=== PATIENT | male | born 1955 | race Caucasian/White ===

== ENCOUNTER 2024-10-16 18:26 | Emergency (ER) | payer MEDICARE ==
[2024-10-16 18:32] VITALS: RESP 18
--- NOTE | 2024-10-16 19:39 | ED ---
Extremity Problem HPI - General Source: patient Mode of arrival: ambulatory Limitations: no limitations <Sonia Medina - Last Filed: 10/16/24 19:44> <Hyacinth Ellis - Last Filed: 10/21/24 03:11> - General Chief complaint: Extremity Problem,Nontraumatic Stated complaint: Bilateral Swollen Legs Time Seen by Provider: 10/16/24 19:39 - History of Present Illness Initial comments: Quick Note: 69-year-old male presenting with chief complaint of lower extremity swelling. This has been an ongoing issue, states that over the last 2 months it has been worse. No chest pain or difficulty breathing. (Sonia Medina) 69-year-old male presents emergency department reporting bilateral lower extr emity swelling. States has been going on for the past 2 months since he came to [place]. Patient reports that he followed with his pain management doctor and he thought it was due to his other neuropathy. Patient denies history of heart failure. He does not take diuretics. No fevers. No drainage from the site. No history of DVT or PE. No other alleviating, precipitating or modifying facto rs (Hyacinth Ellis) - Related Data Previous Rx's Medication Instructions Recorded Cephalexin [Keflex] 500 mg PO Q6HR #28 cap 10/17/24 Furosemide [Lasix] 20 mg PO DAILY #30 tab 10/17/24 Allergies Allergy/AdvReac Type Severity Reaction Status Date / Time sulfamethoxazole Allergy Itching Verified 10/16/24 18:32 [From Bactrim] trimethoprim [From Bactrim] Allergy Itching Verified 10/16/24 18:32 Review of Systems ROS Other: All systems not noted in ROS Statement are negative. <Sonia Medina - Last Filed: 10/16/24 19:44> ROS Other: All systems not noted in ROS Statement are negative. <Hyacinth Ellis - Last Filed: 10/21/24 03:11> ROS Statement: Those systems with pertinent positive or pertinent negative responses have been documented in the HPI. Past Medical History Past Medical History: Hypertension History of Any Multi-Drug Resistant Organisms: None Reported Past Surgical History: Hernia Repair Additional Past Surgical History / Comment(s): cervial Past Psychological History: No Psychological Hx Reported Smoking Status: Never smoker Past Alcohol Use History: None Reported Past Drug Use History: None Reported <Sonia Medina - Last Filed: 10/16/24 19:44> General Exam Limitations: no limitations <Sonia Medina - Last Filed: 10/16/24 19:44> General appearance: alert, in no apparent distress Head exam: Present: atraumatic, normocephalic, normal inspection Eye exam: Present: normal appearance, PERRL, EOMI. Absent: scleral icterus, conjunctival injection, periorbital swelling ENT exam: Present: normal exam, mucous membranes moist Neck exam: Present: normal inspection. Absent: tenderness, meningismus, lymphadenopathy Respiratory exam: Present: normal lung sounds bilaterally. Absent: respiratory distress, wheezes, rales, rhonchi, stridor Cardiovascular Exam: Present: regular rate, normal rhythm, normal heart sounds. Absent: systolic murmur, diastolic murmur, rubs, gallop, clicks GI/Abdominal exam: Present: soft, normal bowel sounds. Absent: distended, tenderness, guarding, rebound, rigid Extremities exam: Present: full ROM, normal capillary refill, pedal edema. Absent: tenderness, joint swelling, calf tenderness Back exam: Present: normal inspection Neurological exam: Present: alert, oriented X3, CN II-XII intact Psychiatric exam: Present: normal affect, normal mood Skin exam: Present: warm, dry, intact, normal color. Absent: rash <Hyacinth Ellis - Last Filed: 10/21/24 03:11> - General Exam Comments Initial Comments: Visual Physical Exam Vital signs reviewed General: Well-appearing, nontoxic, no acute distress. Head: Normocephalic, atraumatic Eyes: PERRLA, EOMI ENT: Airway patent Chest: Nonlabored breathing Skin: No visual rash, normal skin tone Neuro: Alert and oriented 3 Musculoskeletal: No gross abnormalities (Sonia Medina) Course Vital Signs 10/16/24 10/17/24 18:28 01:49 Temperature 98.0 F 98.6 F Pulse Rate 88 76 Respiratory 18 18 Rate Blood Pressure 144/87 146/82 O2 Sat by Pulse 97 99 Oximetry Medical Decision Making <Sonia Medina - Last Filed: 10/16/24 19:44> - Lab Data Result diagrams: 10/16/24 21:31 10/16/24 21:31 <Hyacinth Ellis - Last Filed: 10/21/24 03:11> - Medical Decision Making I performed the quick note portion of this visit, electronically signed Sonia Medina PA-C (Sonia Medina) Was pt. sent in by a medical professional or institution (MOSHE Frost, HEAVY TRUCK TECHNICIAN, urgent care, hospital, or assisted...) When possible be specific @ -No Did you speak to anyone other than the patient for history (EMS, parent, family, police, friend...)? What history was obtained from this source @ -No Did you review nursing and triage notes (agree or disagree)? Why? @ -I reviewed and agree with nursing and triage notes Were old charts reviewed (outside hosp., previous admission, EMS record, old EKG, old radiological studies, urgent care reports/EKG's, assisted records)? Report findings @ -No old charts were reviewed Differential Diagnosis (chest pain, altered mental status, abdominal pain women, abdominal pain men, vaginal bleeding, weakness, fever, dyspnea, syncope, headache, dizziness, GI bleed, back pain, seizure, CVA, palpatations, mental health, musculoskeletal)? @ -Lymphedema, DVT, cellulitis EKG interpreted by me (3pts min.). @ -Not done X-rays interpreted by me (1pt min.). @ -None done CT interpreted by me (1pt min.). @ -None done U/S interpreted by me (1pt. min.). @ -Yes which demonstrates no acute DVT What testing was considered but not performed or refused? (CT, X-rays, U/S, labs)? Why? @ -None What meds were considered but not given or refused? Why? @ -None Did you discuss the management of the patient with other professionals (professionals i.e. MOSHE Frost, HEAVY TRUCK TECHNICIAN, lab, RT, psych nurse, socially responsible investment adviser, video tape editor, te acher, air defence officer, case assembler)? Give summary @ -No Was smoking cessation discussed for >3mins.? @ -No Was critical care preformed (if so, how long)? @ -No Were there social determinants of health that impacted care today? How? (Homelessness, low income, unemployed, alcoholism, drug addiction, transportation, low edu. Level, literacy, decrease access to med. care, care home, rehab)? @ -No Was there de-escalation of care discussed even if they declined (Discuss DNR or withdrawal of care, Hospice)? DNR status @ -No What co-morbidities impacted this encounter? (DM, HTN, Smoking, COPD, CAD, C ancer, CVA, ARF, Chemo, Hep., AIDS, mental health diagnosis, sleep apnea, morbid obesity)? @ -Hypertension Was patient admitted / discharged? Hospital course, mention meds given and route, prescriptions, significant lab abnormalities, going to OR and other pertinent info. @ -Upon arrival patient seen and evaluated in bed 27. Thorough history and physical exam was performed. IV access was established laboratory studies are conducted. White count is 20,000. Ultrasound demonstrates no acute process. Patient given a dose of antibiotics. He will be discharged home on antibiotics and Lasix. Instructed to take them as they are instructed. Follow-up with his primary care. Return for any new or worsening symptoms. Patient agreeable to plan he was discharged in stable condition Undiagnosed new problem with uncertain prognosis? @ -No Drug Therapy requiring intensive monitoring for toxicity (Heparin, Nitro, Insulin, Cardizem)? @ -No Were any procedures done? @ -No Diagnosis/symptom? @ -Chronic bilateral lower extremity edema, leukocytosis Acute, or Chronic, or Acute on Chronic? @ -Chronic, Acute Uncomplicated (without systemic symptoms) or Complicated (systemic symptoms)? @ -Complicated Side effects of treatment? @ -No Exacerbation, Progression, or Severe Exacerbation? @ -No Poses a threat to life or bodily function? How? (Chest pain, USA, NM, pneumonia, PE, COPD, DKA, ARF, appy, cholecystitis, CVA, Diverticulitis, Homicidal, Suicidal, threat to staff... and all critical care pts) @ -No (Hyacinth Ellis) - Lab Data Lab Results 10/16/24 10/16/24 10/16/24 Range/Units 21:31 21:31 23:21 WBC 20.76 H (4.50-10.00) 10*3/uL RBC 5.10 (4.40-5.60) 10*6/uL Hgb 14.6 (13.0-17.0) g/dL Hct 44.3 (39.6-50.0) % MCV 86.9 (80.0-97.0) fL MCH 28.6 (27.0-32.0) pg MCHC 33.0 (32.0-37.0) g/dL Plt Count 257 (140-440) 10*3/uL MPV 9.5 (9.5-12.2) fL Immature Gran % (Auto) 0.1 % Neutrophils % 15.3 % Lymphocytes % 82.3 % Monocytes % 1.0 % Eosinophils % 1.0 % Basophils % 0.3 % Immature Gran # 0.03 (0.00-0.04) 10*3/uL Neutrophils # 3.19 (1.80-7.70) 10*3/uL Lymphocytes # 17.08 H (0.90-5.00) 10*3/uL Monocytes # 0.20 (0.20-1.00) 10*3/uL Eosinophils # 0.20 (0.04-0.35) 10*3/uL Basophils # 0.06 (0.00-0.10) 10*3/uL Manual Slide Review Performed Sodium 138 (137-145) mmol/L Potassium 5.6 H (3.5-5.1) mmol/L Chloride 104 (98-107) mmol/L Carbon Dioxide 23 (22-30) mmol/L Anion Gap 11 mmol/L BUN 10 (9-20) mg/dL Creatinine 0.72 (0.66-1.25) mg/dL Est GFR (CKD-EPI)AfAm >90 (>60 ml/min/1.73 sqM) Est GFR (CKD-EPI)NonAf >90 (>60 ml/min/1.73 sqM) Glucose 139 H (74-99) mg/dL Calcium 9.5 (8.4-10.2) mg/dL Magnesium 1.9 (1.6-2.3) mg/dL Total Bilirubin 1.3 (0.2-1.3) mg/dL AST 44 (17-59) U/L ALT 21 (4-49) U/L Alkaline Phosphatase 77 (38-126) U/L NT-Pro-B Natriuret Pep <20 pg/mL Total Protein 7.4 (6.3-8.2) g/dL Albumin 4.3 (3.5-5.0) g/dL Urine Color Colorless Urine Appearance Clear (Clear) Urine pH 6.0 (5.0-8.0) Ur Specific [place] 1.012 (1.001-1.035) Urine Protein Negative (Negative) Urine Glucose (UA) Negative (Negative) Urine Ketones Negative (Negative) Urine Blood Negative (Negative) Urine Nitrite Negative (Negative) Urine Bilirubin Negative (Negative) Urine Urobilinogen <2.0 (<2.0) mg/dL Ur Leukocyte Esterase Negative (Negative) Disposition <Sonia Medina - Last Filed: 10/16/24 19:44> Is patient prescribed a controlled substance at d/c from ED?: No Time of Disposition: 01:11 <Hyacinth Ellis - Last Filed: 10/21/24 03:11> Clinical Impression: Lymphedema, Leukocytosis Disposition: HOME SELF-CARE Condition: Stable Instructions (If sedation given, give patient instructions): Leg Edema (ED) Additional Instructions: Please take the antibiotics and water pill daily. Follow-up with your doctor and have repeat kidney function and white blood cell counts completed in 2 weeks. Wear the lexis wraps to help provide compression to the area. Return for any new or worsening symptoms. Prescriptions: Cephalexin [Keflex] 500 mg PO Q6HR #28 cap Furosemide [Lasix] 20 mg PO DAILY #30 tab Referrals: None,Stated [Primary Care Provider] - 1-2 days
[2024-10-16 21:37] LABS: Basophils # (A) 0.06 10*3/uL (0.00-0.10); Basophils % (A) 0.3 %; Eosinophils # (A) 0.20 10*3/uL (0.04-0.35); Eosinophils % (A) 1.0 %; HCT 44.3 % (39.6-50.0); HGB 14.6 g/dL (13.0-17.0); Lymphocytes % (A) 82.3 %; MCH 28.6 pg (27.0-32.0); MCHC 33.0 g/dL (32.0-37.0); MCV 86.9 fL (80.0-97.0); Monocytes # (A) 0.20 10*3/uL (0.20-1.00); Monocytes % (A) 1.0 %; Neutrophils # (A) 3.19 10*3/uL (1.80-7.70); Neutrophils % (A) 15.3 %; Platelet Count 257 10*3/uL (140-440); RBC 5.10 10*6/uL (4.40-5.60); RDW 14.5 % (11.5-14.5); WBC 20.76 10*3/uL (4.50-10.00)
[2024-10-16 21:47] LABS: ALT 21 U/L (4-49); African American GFR (CKD) >90 (>60 ml/min/1.73 sqM); Albumin 4.3 g/dL (3.5-5.0); Anion Gap 11 mmol/L; Blood Urea Nitrogen 10 mg/dL (9-20); Calcium 9.5 mg/dL (8.4-10.2); Carbon Dioxide 23 mmol/L (22-30); Chloride 104 mmol/L (98-107); Glucose 139 mg/dL (74-99); Magnesium 1.9 mg/dL (1.6-2.3); Non-African American GFR(CKD) >90 (>60 ml/min/1.73 sqM); Sodium 138 mmol/L (137-145)
[2024-10-16 21:48] LABS: AST 44 U/L (17-59); Alkaline Phosphatase 77 U/L (38-126); Potassium 5.6 mmol/L (3.5-5.1); Total Protein 7.4 g/dL (6.3-8.2)
[2024-10-16 21:56] LABS: NT-Pro-B-Type Natriuretic Pept <20 pg/mL
[2024-10-16 22:14] LABS: Lymphocytes # (A) 17.08 10*3/uL (0.90-5.00)
[2024-10-16 23:54] LABS: Bilirubin,Urine Negative (Negative); Blood,Urine Negative (Negative); Color,Urine Colorless; Glucose,Urine (UA) Negative (Negative); Ketones,Urine Negative (Negative); Leukocyte Esterase,Urine Negative (Negative); Nitrite,Urine Negative (Negative); PH, Urine 6.0 (5.0-8.0); Protein,Urine Negative (Negative); Specific Gravity,Urine 1.012 (1.001-1.035); Urobilinogen,Urine <2.0 mg/dL (<2.0)
--- NOTE | 2024-10-17 01:18 | US ---
Exam: US VENOUS BILATERAL LOWER EXTREMITIES DATE OF EXAM: 10/16/2024 11:14 PM COMPARISON: NONE CLINICAL INDICATION: Male, 69 years old with history of swelling; patient states bilateral ankle swelling. No hx dvt. Not on thinners, TECHNIQUE: The lower extremity deep venous system is examined utilizing real time linear array sonography with graded compression, color doppler sonography, and spectral doppler. SIDE PERFORMED: Bilateral FINDINGS: VESSELS IMAGED: Common Femoral Vein Deep Femoral Vein Greater Saphenous Vein * Femoral Vein Popliteal Vein Small Saphenous Vein * Proximal Calf Veins (* superficial vessels) Right Leg: appears negative for dvt, Color Doppler imaging shows patency of the vessels. Spectral waveforms are within normal limits. Left Leg: appears negative for dvt, Color Doppler imaging shows patency of the vessels. Spectral waveforms are within normal limits. Impression: No DVT.
[2024-10-17] MEDS: FUROSEMIDE 10 MG/ML 4 ML VIAL IV STA (01:29)
[2024-10-17] MEDS: cefTRIAXone IN SWFI 1,000 MG/10 ML SYRINGE IVP STA (01:30)
[2024-10-17 01:50] VITALS: BP 146/82; PULSE 76; TEMP 98.6
== END 2024-10-17 01:54 | disposition home or self-care (01) ==
LOC: EC 18:26
DX: I89.0 Lymphedema, not elsewhere classified (principal); D72.829 Elevated white blood cell count, unspecified; I10 Essential (primary) hypertension; Z88.1 Allergy status to other antibiotic agents; Z88.2 Allergy status to sulfonamides
CPT/HCPCS: 36415; 83880; 80053; 83735; 85025; 81003; 93970; 99284; 96374; 96375; J0696; J1938